=== PATIENT | male | born 1960 | race African-American/Black ===

== ENCOUNTER 2016-04-27 18:14 | Inpatient (IN) | payer OTHER ==
[2016-04-27 20:25] VITALS: BMI 43.0
--- NOTE | 2016-04-27 22:13 | HP ---
CIWA Score - CIWA Score Nausea/Vomitin-No Nausea/No Vomiting Muscle Tremors: None Anxiety: 0-No Anxiety, at Ease Agitation: 0-Normal Activity Paroxysmal Sweats: No Perspiration Orientation: 0-Oriented Tacttile Disturbances: 0-None Auditory Disturbances: 0-None Visual Disturbances: 0-None Headache: 0-None Present CIWA-Ar Total Score: 0 Admission ROS [facility] - HPI Chief Complaint: WITHDRAWAL SX'S Allergies/Adverse Reactions: Allergies Allergy/AdvReac Type Severity Reaction Status Date / Time No Known Drug Allergies Allergy Verified 02/21/14 11:39 History of Present Illness: 55 Y.O MALE WITH OPIOID DEPENDENCE AND SPORADIC USE OF BENZO ( XANAX). STATES DOES NOT CRAVE FOR BENZO. USE 2MG MAYBE ONCE WEEKLY IF ITS AVAILABLE. HERE FOR ADMISSION FOR DETOX TXMENT. CLIENT IS CURRENTLY ON MMTP METHADONE 100 MG PO DAILY. LAST MEDICATED TODAY. ATTEND MMTP HERE. DISCUSSED WITH CLIENT HE DOES NOT MEET DETOX CRITERIA. WILL ADMIT TO REHAB FOR CONTINUAL HEROIN USE WHILE ON MMTP. Exam Limitations: No Limitations - Ebola screening Have you traveled outside of the country in the last 21 days: No Have you had contact with anyone from an Ebola affected area: No Have you been sick,other than usual withdrawal symptoms: No Do you have a fever: No - Review of Systems Constitutional: Chills, Loss of Appetite, Night Sweats EENT: reports: No Symptoms Reported Respiratory: reports: No Symptoms reported Cardiac: reports: Edema (BLE) GI: reports: No Symptoms Reported : reports: No Symptoms Reported Musculoskeletal: reports: No Symptoms Reported Integumentary: reports: No Symptoms Reported Neuro: reports: Seizure Endocrine: reports: No Symptoms Reported Hematology: reports: No Symptoms Reported Psychiatric: reports: Depressed Other Systems: Reviewed and Negative Patient History - Patient Medical History Hx Anemia: No Hx Asthma: No Hx Chronic Obstructive Pulmonary Disease (COPD): No Hx Cancer: No Hx Cardiac Disorders: No Hx Congestive Heart Failure: No Hx Hypertension: Yes (AMLODIPINE) Hx Hypercholesterolemia: Yes (ZOCOR) Hx Pacemaker: No HX Cerebrovascular Accident: No Hx Seizures: No Hx Dementia: No Hx Diabetes: No Hx Gastrointestinal Disorders: No Hx Liver Disease: No Hx Genitourinary Disorders: No Hx Renal Disease (ESRD): No Hx Thyroid Disease: No Hx Human Immunodeficiency Virus (HIV): No Hx Hepatitis C: No Hx Depression: No Hx Suicide Attempt: No Hx Bipolar Disorder: No Hx Schizophrenia: No Other Medical History: H/O TB EXPOSURE WITH TXMENT - Patient Surgical History Past Surgical History: Yes Hx Neurologic Surgery: No Hx Cataract Extraction: No Hx Cardiac Surgery: No Hx Lung Surgery: No Hx Breast Surgery: No Hx Breast Biopsy: No Hx Abdominal Surgery: No Hx Appendectomy: No Hx Cholecystectomy: No Hx Genitourinary Surgery: No Hx Section: No Hx Orthopedic Surgery: No Hx Hysterectomy: No Other Surgical History: INGUINAL HERNIA REPAIR; RIGHT Anesthesia Reaction: Yes - PPD History Previous Implant?: No Documented Results: Positive w/o proof Implanted On Prior R Admission?: No PPD to be Administered?: No - Smoking Cessation Smoking history: Current every day smoker Have you smoked in the past 12 months: Yes Aproximately how many cigarettes per day: 10 Cigars Per Day: 0 Hx Chewing Tobacco Use: No Initiated information on smoking cessation: Yes 'Breaking Loose' booklet given: 04/27/16 - Substance & Tx. History Hx Alcohol Use: Yes Hx Substance Use: Yes Substance Use Type: Heroin, Tranquilizers (XANAX) Hx Substance Use Treatment: Yes ([facility]) - Substances Abused HEROIN Route: Inhalation Frequency: Daily Amount used: 5 BAGS Age of first use: 23 Date of Last Use: 04/26/16 XANAX Route: Oral Frequency: 1-2 times per week (USES ONCE WEEKLY IF THAT. DOES NOT CRAVE) Amount used: 2MG Age of first use: 49 Date of Last Use: 04/26/16 Family Disease History - Family Disease History Family Disease History: Other: Mother (cirrhosis, alcohol), Sister (hiv) Admission Physical Exam S - Vital Signs Vital Signs: Vital Signs - 24 hr 04/27/16 20:23 Temperature 96.8 F L Pulse Rate 55 L Respiratory 16 Rate Blood Pressure 115/61 - Physical General Appearance: Yes: No Apparent Distress, Appropriately Dressed, Other ( MORBID OBESE) HEENTM: Yes: EOMI, Hearing grossly Normal, Normocephalic, Normal Voice, GLENYS, Pharynx Normal, Other (TOP DENTURES BOTTOMS EDENTULOUS) Respiratory: Yes: Chest Non-Tender, Lungs Clear, Normal Breath Sounds, No Respiratory Distress, No Accessory Muscle Use Neck: Yes: No masses,lesions,Nodules, Supple, Trachea in good position Breast: Yes: Breast Exam Deferred Cardiology: Yes: Regular Rhythm, Regular Rate, S1, S2 Abdominal: Yes: Normal Bowel Sounds, Non Tender, Protuberent, Other (GROSSLY OBESE) Genitourinary: Yes: Within Normal Limits Back: Yes: Within Normal Limits Musculoskeletal: Yes: Gait Steady Extremities: Yes: Normal Capillary Refill, Normal Inspection, Normal Range of Motion, Non-Tender Neurological: Yes: air traffic coordinator II-XII NML intact, Fully Oriented, Alert, Motor Strength 5/5, Normal Mood/Affect Integumentary: Yes: Normal Color, Dry, Warm, Other (DRY SCALY SKIN TO BLE WITH HYPERPIMENTATION/VASC CHANGES) Lymphatic: Yes: Within Normal Limits - Diagnostic (1) High cholesterol Current Visit: Yes Status: Chronic (2) HTN (hypertension) Current Visit: Yes Status: Chronic Qualifiers: Hypertension type: essential hypertension Qualified Code(s): I10 - Essential (primary) hypertension Comment: stable on meds, sees primary (3) Lymphedema of both lower extremities Current Visit: Yes Status: Chronic Comment: pedal exercises (4) Methadone maintenance therapy patient Current Visit: Yes Status: Chronic Comment: stable, counselor Efren (5) Nicotine dependence Current Visit: Yes Status: Chronic Qualifiers: Nicotine product type: cigarettes Substance use status: uncomplicated Qualified Code(s): F17.210 - Nicotine dependence, cigarettes, uncomplicated Comment: counseled cessation - uses nicotrol Cleared for Admission [facility] - Detox or Rehab Claeared for Rehab Admission: Yes [facility] Breath Alcohol Content Breath Alcohol Content: 0 Urine Drug Screen - Results Drug Screen Negative: No Urine Drug Screen Results: JULIA-Cocaine, OPI-Opiates, BZO-Benzodiazepines, MTD- Methadone
[2016-04-27] MEDS ORDERED: hydrOXYzine PAMOATE 50 MG CAPSULE (FP) PO PRN (22:35)
[2016-04-27] MEDS ORDERED: MAGNESIUM CITRATE 300 ML BOTTLE PO PRN (22:35)
[2016-04-27] MEDS ORDERED: diphenhydrAMINE HCL 50 MG CAPSULE PO PRN (22:35)
[2016-04-27] MEDS ORDERED: P-EPHED 60MG/TRIPROLIDI 2.5MG TABLET PO PRN (22:35)
[2016-04-27] MEDS ORDERED: LOPERAMIDE HCL 2 MG CAPSULE PO PRN (22:35)
[2016-04-27] MEDS ORDERED: NICOTINE POLACRILEX 2 MG GUM BC PRN (22:35)
[2016-04-27] MEDS ORDERED: IBUPROFEN 400 MG TABLET (FP) PO PRN (22:35)
[2016-04-27] MEDS ORDERED: MAG HYDROX/AL HYDROX/SIMETH 30 ML UNIT-DOSE CUP PO PRN (22:35)
[2016-04-27] MEDS ORDERED: MENTHOL/PHENOL 1 EACH UD MM PRN (22:35)
[2016-04-27] MEDS ORDERED: MAGNESIUM HYDROX 2400MG/30ML ORAL SUSPENSION 30 ML CUP PO PRN (22:35)
[2016-04-27] MEDS ORDERED: guaiFENesin/D-METHORPHAN HB 10 ML UNIT-DOSE CUPS PO PRN (22:35)
[2016-04-27] MEDS ORDERED: ACETAMINOPHEN 325 MG TABLET (FP) PO PRN (22:35)
[2016-04-28] MEDS ORDERED: METHADONE HCL 40 MG DISPERSABLE TABLET PO SCH (07:30)
[2016-04-28] MEDS ORDERED: METHADONE HCL 10 MG TABLET ONE (07:40)
[2016-04-28] MEDS ORDERED: METHADONE HCL 40 MG DISPERSABLE TABLET ONE (07:40)
[2016-04-28] MEDS: METHADONE 80 MG, METHADONE 20 MG PO SCH (07:45)
--- NOTE | 2016-04-28 09:35 | HP ---
Psychiatrist Admission - Data Date of interview: 04/28/16 Admission source: [facility] Identifying data: This is the first [facility] admission for this 55 years old single male, father of 2 son, domiciled living with his girlfriend Medical History: Significant for history of HTN, Hyperlipidemia, prophylatic treatment for TB and S/P right Inguinal Hernia repair. He attends [facility] on 100 mg of methadone daily Psychiatric History: Reports that his first psychiatric contact was in early 2012. he saw a psychiatrist who diagnosed him with depression and prescribed him medication which he took for 2 years. He does not recall name of that medication. Later in 2012, he was evaluated by [facility] psychiatrist and was given SSI.Eight months ago, he saw Dr Pisano at [facility] and was prescibed Zoloft for depression. Told commercial lines underwriter that he stopped taking it for a while now since he has been feeling better. Reports that his depression stemmed from a series of in his family. Told commercial lines underwriter his father when he was 2, his mother when he was 7, 2 sisters respectively when he was 24 and 2003., a son shoot himself in 2005 and his second son was shot and killed in 2009. Denies history of previouspsychiatric hospitalization or suicidal atttempt. At prrsent, reports feeling midly depressed Physical/Sexual Abuse/Trauma History: Denies history of physical, sexual abuse as well as DV relationship Additional Comment: Reports history of 6 previous arrests including one felony conviction. Denies being on probation/parole at present Vital Signs: Vital Signs - 24 hr 04/27/16 04/28/16 04/28/16 20:23 00:30 03:30 Temperature 96.8 F L Pulse Rate 55 L Respiratory 16 16 16 Rate Blood Pressure 115/61 04/28/16 06:00 Temperature 98.1 F Pulse Rate 49 L Respiratory 18 Rate Blood Pressure 107/65 Allergies/Adverse Reactions: Allergies Allergy/AdvReac Type Severity Reaction Status Date / Time No Known Drug Allergies Allergy Verified 02/21/14 11:39 Date of last physical exam: 04/27/16 Concur with the findings of this exam: Yes - Substance Abuse/Tx History Hx Alcohol Use: No Hx Substance Use: Yes Substance Use Type: Heroin (Started using heroin at age 23, consumes 5 bags daily in addition of MMTP 100 mg daily. Last used on 04/26/16) Hx Substance Use Treatment: Yes (one previous inpt detox @ [facility] Mar 2010) - Admission Criteria Previous failed treatment: Yes Poor recovery environment: Yes Comorbidities: Yes Lacks judgement: Yes Mental Status Exam - Mental Status Exam Alert and Oriented to: Time, Place, Person Cognitive Function: Fair Patient Appearance: Well Groomed Mood: Anxious (mildly) Affect: Appropriate Patient Behavior: Cooperative Speech Pattern: Artificially Ventilated Voice Loudness: Limited Variation Thought Disorder: Not Present Hallucinations: Denies Suicidal Ideation: Denies Homicidal Ideation: Denies Insight/Judgement: Fair Sleep: Fair Appetite: Good Muscle strength/Tone: Normal Gait/Station: Normal Psychiatric Findings - Problem List ([place] 1, 2,3) (1) Opioid dependence Current Visit: Yes Status: Acute (2) Sedative abuse Current Visit: Yes Status: Acute (3) Opioid dependence on agonist therapy Current Visit: Yes Status: Acute (4) Nicotine dependence Current Visit: Yes Status: Chronic Qualifiers: Nicotine product type: cigarettes Substance use status: uncomplicated Qualified Code(s): F17.210 - Nicotine dependence, cigarettes, uncomplicated Comment: counseled cessation - uses nicotrol (5) Depressive disorder Current Visit: Yes Status: Ruled-out (6) Substance induced mood disorder Current Visit: Yes Status: Acute (7) HTN (hypertension) Current Visit: Yes Status: Chronic Qualifiers: Hypertension type: essential hypertension Qualified Code(s): I10 - Essential (primary) hypertension Comment: stable on meds, sees primary (8) High cholesterol Current Visit: Yes Status: Chronic (9) Lymphedema of both lower extremities Current Visit: Yes Status: Chronic Comment: pedal exercises (10) Obesity, Class III, BMI 40-49.9 (morbid obesity) Current Visit: No Status: Chronic Comment: thinking of lap band surgery anti-inflammatory diet teaching done (11) PPD positive, treated Current Visit: No Status: Chronic (12) Plantar fasciitis Current Visit: No Status: Chronic Comment: reviewed stretches - return demonstration ice topicals (13) Sleep apnea Current Visit: No Status: Chronic Comment: now has cpap and using it (14) Vitamin D deficiency Current Visit: No Status: Chronic Comment: cont [id number] biw - Initial Treatment Plan Initial Treatment Plan: Monitor progress
[2016-04-28] MEDS: amLODIPine BESYLATE 10 MG TABLET (FP) PO SCH (10:00)
[2016-04-28] MEDS: NICOTINE 14 MG/24 HOURS TOPICAL PATCH TD SCH (10:00)
[2016-04-28] MEDS: FUROSEMIDE 40 MG TABLET (FP) PO SCH (10:00)
[2016-04-28] MEDS: PRENATAL VITAMINS W/ FOLIC ACID TABLET (FP) PO SCH (10:00)
[2016-04-28 10:19] LABS: MCH 27.8 pg (25.7-33.7); MCHC 33.4 g/dl (32.0-35.9); MEAN CELL VOLUME 83.2 fl (80-96); MEAN PLT VOLUME 8.3 fl (7.5-11.1); PLATELET COUNT 240 K/MM3 (134-434); RDW 15.1 % (11.9-15.9); WHITE BLOOD COUNT 8.2 K/mm3 (4.0-10.0)
[2016-04-28 10:47] LABS: ALBUMIN 3.6 g/dl (3.4-5.0); ALK PHOS 57 U/L (45-117); ANION GAP 7 (8-16); BILIRUBIN,TOTAL 0.7 mg/dL (0.2-1.0); CALCIUM 8.7 mg/dL (8.5-10.1); CO2 28 mmol/L (21-32); CREATININE 1.2 mg/dL (0.7-1.3); GLUCOSE,RANDOM 75 mg/dL (74-106); SGOT/AST 16 U/L (15-37); SGPT/ALT 21 U/L (12-78); TOT PROT 6.4 g/dl (6.4-8.2)
[2016-04-28 11:45] LABS: HIV 1 & 2 AB NEGATIVE; HIV 1 AGp24 NEGATIVE
[2016-04-28 17:20] LABS: URINE APPEARANCE SLCLOUDY; URINE BILIRUBIN NEGATIVE (NEGATIVE); URINE BLOOD NEGATIVE (NEGATIVE); URINE COLOR YELLOW; URINE GLUCOSE (UA) NEGATIVE (NEGATIVE); URINE KETONE NEGATIVE (NEGATIVE); URINE NITRITE NEGATIVE (NEGATIVE); URINE PROTEIN NEGATIVE (NEGATIVE); URINE UROBILINOGEN 2.0 E.U/dl E.U./dl (0.2-1.0)
[2016-04-28 17:26] LABS: URINE LEUK ESTERASE 2+ (NEGATIVE)
[2016-04-28 17:39] LABS: URINE BACTERIA FEW /hpf (NONE SEEN); URINE MUCUS MANY; URINE RBC 8 /hpf (0-3); URINE WBC 84 /hpf (3-5)
[2016-04-28] MEDS: ATORVASTATIN CA 10 MG TABLET (FP) PO SCH (21:56)
[2016-04-28] MEDS: THIAMINE HCL 100 MG TABLET (FP) PO SCH (21:56)
[2016-04-29] MEDS ORDERED: METHADONE HCL 10 MG TABLET ONE (04:04)
[2016-04-29] MEDS ORDERED: METHADONE HCL 40 MG DISPERSABLE TABLET ONE (04:05)
[2016-04-29] MEDS: METHADONE 80 MG, METHADONE 20 MG PO SCH (06:20)
[2016-04-29] MEDS: FUROSEMIDE 40 MG TABLET (FP) PO SCH (09:55)
[2016-04-29] MEDS: amLODIPine BESYLATE 10 MG TABLET (FP) PO SCH (09:55)
[2016-04-29] MEDS: PRENATAL VITAMINS W/ FOLIC ACID TABLET (FP) PO SCH (09:55)
[2016-04-29] MEDS: NICOTINE 14 MG/24 HOURS TOPICAL PATCH TD SCH (09:56)
[2016-04-29] MEDS: THIAMINE HCL 100 MG TABLET (FP) PO SCH (21:23)
[2016-04-29] MEDS: ATORVASTATIN CA 10 MG TABLET (FP) PO SCH (21:23)
[2016-04-30] MEDS ORDERED: METHADONE HCL 10 MG TABLET ONE (03:35)
[2016-04-30] MEDS ORDERED: METHADONE HCL 40 MG DISPERSABLE TABLET ONE (03:35)
[2016-04-30] MEDS: METHADONE 80 MG, METHADONE 20 MG PO SCH (06:12)
[2016-04-30] MEDS: amLODIPine BESYLATE 10 MG TABLET (FP) PO SCH (10:37)
[2016-04-30] MEDS: PRENATAL VITAMINS W/ FOLIC ACID TABLET (FP) PO SCH (10:37)
[2016-04-30] MEDS: NICOTINE 14 MG/24 HOURS TOPICAL PATCH TD SCH (10:37)
[2016-04-30] MEDS: FUROSEMIDE 40 MG TABLET (FP) PO SCH (10:37)
[2016-04-30] MEDS: THIAMINE HCL 100 MG TABLET (FP) PO SCH (21:43)
[2016-04-30] MEDS: ATORVASTATIN CA 10 MG TABLET (FP) PO SCH (21:43)
[2016-05-01] MEDS ORDERED: METHADONE HCL 10 MG TABLET ONE (03:48)
[2016-05-01] MEDS ORDERED: METHADONE HCL 40 MG DISPERSABLE TABLET ONE (03:49)
[2016-05-01] MEDS: METHADONE 80 MG, METHADONE 20 MG PO SCH (06:06)
[2016-05-01 06:34] VITALS: TEMP 98.7
[2016-05-01] MEDS: PRENATAL VITAMINS W/ FOLIC ACID TABLET (FP) PO SCH (10:28)
[2016-05-01] MEDS: FUROSEMIDE 40 MG TABLET (FP) PO SCH (10:29)
[2016-05-01] MEDS: amLODIPine BESYLATE 10 MG TABLET (FP) PO SCH (10:29)
[2016-05-01] MEDS: NICOTINE 14 MG/24 HOURS TOPICAL PATCH TD SCH (10:30)
[2016-05-01 11:55] VITALS: BP 117/65; PULSE 44
--- NOTE | 2016-05-01 15:49 | PN ---
[facility] Progress Note Note: PATIENT DID NOT WANT TO COMPLETE TREATMENT,SIGNED RELEASE AMA,PSYCHIATRIST SKI PATROLLER NOTIFIED BY NURSE
--- NOTE | 2016-05-04 10:17 | EKG ---
Test Reason : Blood Pressure : / mmHG Vent. Rate : 046 BPM Atrial Rate : 046 BPM P-R Int : 172 ms QRS Dur : 086 ms QT Int : 426 ms P-R-T Axes : 060 006 -15 degrees QTc Int : 372 ms SINUS BRADYCARDIA NONSPECIFIC T WAVE ABNORMALITY ABNORMAL ECG WHEN COMPARED WITH ECG OF 21-FEB-2014 14:05, NO SIGNIFICANT CHANGE WAS FOUND Confirmed by ROLY VACA MD ([id number]) on 05/04/2016 10:17:26 AM Referred By: Confirmed By:ROLY VACA MD
== END 2016-05-01 14:50 | disposition left against medical advice (07) | DRG 770 ==
LOC: YASAS 18:14 → Y3W 22:34
PROVIDERS: ADMIT Internal Medicine; ATTEND Internal Medicine
PROC: HZ2ZZZZ Detoxification Services for Substance Abuse Treatment (ICD-10-PCS; principal; 2016-04-27)
DX: F11.23 Opioid dependence with withdrawal (principal); F13.10 Sedative, hypnotic or anxiolytic abuse, uncomplicated; F17.210 Nicotine dependence, cigarettes, uncomplicated; F32.9 Major depressive disorder, single episode, unspecified; I10 Essential (primary) hypertension; E78.5 Hyperlipidemia, unspecified; E66.9 Obesity, unspecified; Z68.41 Body mass index [BMI] 40.0-44.9, adult; M72.2 Plantar fascial fibromatosis; G47.30 Sleep apnea, unspecified; E55.9 Vitamin D deficiency, unspecified; R59.1 Generalized enlarged lymph nodes; Z86.11 Personal history of tuberculosis
CPT/HCPCS: 36415; 71020-TC; 80053; 81003; 81015; 85027; 86593; 87389; 93005; 93010

== ENCOUNTER 2021-07-12 16:13 | Emergency (ER) | payer OTHER ==
[2021-07-12 16:29] VITALS: BP 149/71; TEMP 98.2; BMI 40.7
[2021-07-12] MEDS ORDERED: ASPIRIN 81 MG CHEWABLE TABLETS PO ONE (17:34)
[2021-07-12 18:31] LABS: EPI CELLS >36 /uL (0-25.1); HYALINE CASTS 16 /uL (0-3.1); PH,URINE 5.5 (5.0-8.0); URINE APPEARANCE CLEAR; URINE BACTERIA 138 /uL (0-1359); URINE BILIRUBIN NEGATIVE (NEGATIVE); URINE COLOR YELLOW; URINE GLUCOSE (UA) NEGATIVE (NEGATIVE); URINE KETONE TRACE (NEGATIVE); URINE LEUK ESTERASE TRACE (NEGATIVE); URINE NITRITE NEGATIVE (NEGATIVE); URINE PROTEIN 2+ (NEGATIVE); URINE RBC 31 /uL (0-23.9); URINE WBC 61 /uL (0-25.8)
[2021-07-12 18:55] LABS: BASO % 0.4 % (0-2.0); EOS % 1.2 % (0-4.5); HEMATOCRIT 38.5 % (35.4-49); HEMOGLOBIN 12.7 GM/dL (11.7-16.9); LYMPH % 21.9 % (8-40); MCH 27.5 pg (25.7-33.7); MCHC 33.1 g/dl (32.0-35.9); MEAN PLT VOLUME 8.5 fl (7.5-11.1); MONO % 5.9 % (3.8-10.2); NEUT % 70.6 % (42.8-82.8); PLATELET COUNT 283 10^3/uL (134-434); RBC 4.64 M/mm3 (4.00-5.60); RDW 15.3 % (11.9-15.9)
[2021-07-12 19:00] LABS: INR 1.11 (0.83-1.09); PROTHROMBIN TIME (PATIENT) 12.8 SEC (9.7-13.0)
[2021-07-12 19:03] LABS: ACTIVATED PTT 34.4 SECONDS (25.2-36.5)
[2021-07-12 19:21] LABS: ALBUMIN 4.6 g/dl (3.4-5.0); BLOOD UREA NITROGEN 17.1 mg/dL (7-18); CALCIUM 10.3 mg/dL (8.5-10.1); MAGNESIUM 2.3 mg/dL (1.8-2.4)
[2021-07-12 19:24] LABS: CREATININE 1.3 mg/dL (0.55-1.3)
[2021-07-12 19:26] LABS: TOT PROT 7.7 g/dl (6.4-8.2)
[2021-07-12 19:30] LABS: N-TERMINAL BNP 21.9 pg/ml (5-125)
[2021-07-12 21:14] VITALS: PULSE 81
[2021-07-13 14:08] LABS: SARS-CoV-2 NAA Not Detected (Not Detected)
== END 2021-07-12 21:16 | disposition home or self-care (01) ==
LOC: JER 16:13
DX: B34.9 Viral infection, unspecified (principal)
CPT/HCPCS: 36415; 71046-TC-FY; 80053; 81003; 83735; 83880; 84484; 85025; 85610; 85730; 93005; 93010; 99285-25; C9803-CS; U0003; U0005

== ENCOUNTER 2022-09-05 04:01 | Day surgery (SDC) | payer OTHER ==
[2022-09-01 09:56] VITALS: BMI 39.4
[2022-09-05 08:05] VITALS: RESP 20
[2022-09-05] MEDS ORDERED: PROMETHAZINE HCL 25 MG/1 ML VIAL IVPB PRN (08:36)
[2022-09-05] MEDS ORDERED: oxyCODONE HCL 5 MG TABLET PO PRN (08:36)
[2022-09-05] MEDS ORDERED: ONDANSETRON 4 MG/2 ML VIAL IVPUSH PRN (08:36)
[2022-09-05] MEDS ORDERED: LACTATED RINGERS SOLUTION 1,000 ML IV SCH (08:45)
[2022-09-05] MEDS ORDERED: DEXAMETHASONE SOD PHOSPHATE 4 MG/1 ML VIAL ONE (08:56)
[2022-09-05] MEDS ORDERED: LIDOCAINE HCL 2% (20ML MULTI-DOSE VIAL) ONE (08:56)
[2022-09-05] MEDS ORDERED: BUPIVACAINE HCL/PF 0.5% (5MG/ML) 10 ML VIAL ONE (08:56)
[2022-09-05] MEDS ORDERED: MIDAZOLAM HCL 2 MG/2 ML SINGLE DOSE VIAL ONE (09:07)
[2022-09-05] MEDS ORDERED: PROPOFOL 20 ML ONE (09:07)
[2022-09-05] MEDS ORDERED: ceFAZolin SODIUM 1 GM VIAL ONE (09:08)
[2022-09-05] MEDS ORDERED: SODIUM CHLORIDE 0.9% P/F 10 ML VIAL IJ ONE ×2 (09:08)
[2022-09-05] MEDS ORDERED: LIDOCAINE HCL/PF 2% SDV 5ML VIAL ONE (09:08)
[2022-09-05] MEDS ORDERED: GLYCOPYRROLATE 0.2 MG/1 ML VIAL ONE (09:08)
[2022-09-05] MEDS ORDERED: PROPOFOL 40 ML ONE (09:10)
[2022-09-05] MEDS ORDERED: ceFAZolin SODIUM 1 GM VIAL IVPB ONE (09:22)
[2022-09-05] MEDS ORDERED: BUPIVACAINE HCL/PF 0.5% (5MG/ML) 10 ML VIAL IJ ONE (09:23)
[2022-09-05] MEDS ORDERED: LIDOCAINE HCL 2% (50ML VIAL) INF ONE (09:23)
[2022-09-05] MEDS ORDERED: KETOROLAC TROMETHAMINE 30 MG/1 ML VIAL ONE (09:50)
[2022-09-05] MEDS ORDERED: DEXAMETHASONE SOD PHOSPHATE 4 MG/1 ML VIAL IVPUSH ONE (10:03)
[2022-09-05 14:40] VITALS: BP 142/77; PULSE 65; TEMP 97.5
== END 2022-09-05 14:45 | disposition home or self-care (01) ==
LOC: JASU-SURG 04:01
PROVIDERS: ATTEND Podiatrist
PROC: 0QBQ0ZZ Excision of Right Toe Phalanx, Open Approach (ICD-10-PCS; 2022-09-05)
PROC: 0SRP0JZ Replacement of Right Toe Phalangeal Joint with Synthetic Substitute, Open Approach (ICD-10-PCS; principal; 2022-09-05 09:30)
DX: M20.41 Other hammer toe(s) (acquired), right foot (principal)
CPT/HCPCS: 73630-TC-RT-FY; 88305-TC; 88311-TC

== ENCOUNTER 2023-04-28 11:40 | Inpatient (IN) | payer OTHER ==
[2023-04-28 12:24] VITALS: BMI 40.7
[2023-04-28] MEDS ORDERED: LOPERAMIDE HCL 2 MG CAPSULE PO PRN (13:19)
[2023-04-28] MEDS ORDERED: MAG HYDROX/AL HYDROX/SIMETH 30 ML UNIT-DOSE CUP PO PRN (13:19)
[2023-04-28] MEDS ORDERED: BISMUTH SUBSALICYLATE 524 MG/30 ML PO PRN (13:19)
[2023-04-28] MEDS ORDERED: POLYETHYLENE GLYCOL (HEALTHYLAX) 3350 17 GM PACKET PO PRN (13:19)
[2023-04-28] MEDS ORDERED: MAGNESIUM HYDROX 2400MG/30ML ORAL SUSPENSION 30 ML CUP PO PRN (13:19)
[2023-04-28] MEDS ORDERED: NALOXONE HCL 0.4 MG/ML VIAL IM PRN (13:19)
[2023-04-28] MEDS ORDERED: IBUPROFEN 400 MG TABLET (FP) PO PRN (13:19)
[2023-04-28] MEDS ORDERED: guaiFENesin 600 MG TABLET.ER (FP) PO PRN (13:19)
[2023-04-28] MEDS ORDERED: BENZONATATE 200 MG CAPSULE PO PRN (13:19)
[2023-04-28] MEDS ORDERED: ACETAMINOPHEN 325 MG TABLET (FP) PO PRN (13:19)
[2023-04-28] MEDS ORDERED: ONDANSETRON *ODT* 4 MG TABLET SL PRN (13:19)
[2023-04-28] MEDS ORDERED: DICYCLOMINE HCL 10 MG CAPSULE PO PRN (13:19)
[2023-04-28] MEDS ORDERED: NALOXONE HCL (KLOXXADO) 8 MG SPRAY NS PRN (13:19)
[2023-04-28] MEDS ORDERED: P-EPHED 60MG/TRIPROLIDI 2.5MG TABLET PO PRN (13:19)
[2023-04-28] MEDS ORDERED: BENZOCAINE/MENTHOL (CHLORASEPTIC ) LOZENGE MM PRN (13:19)
[2023-04-28] MEDS: NICOTINE 7 MG/24 HOURS TOPICAL PATCH TD SCH (18:05)
[2023-04-28] MEDS: ATORVASTATIN CA 10 MG TABLET (FP) PO SCH (22:26)
[2023-04-28] MEDS: THIAMINE HCL 100 MG TABLET (FP) PO SCH (22:26)
[2023-04-28] MEDS: TAMSULOSIN HCL 0.4 MG CAP PO SCH (22:26)
[2023-04-28] MEDS: MELATONIN 5 MG TABLETS PO SCH (22:27)
[2023-04-29 09:44] LABS: POTASSIUM 3.7 mmol/L (3.5-5.1)
[2023-04-29 09:46] LABS: HEMATOCRIT 35.5 % (35.4-49); HEMOGLOBIN 11.5 GM/dL (11.7-16.9); MCHC 32.6 g/dl (32.0-35.9); MEAN PLT VOLUME 8.7 fl (7.5-11.1); PLATELET COUNT 213 10^3/uL (134-434); RBC 4.27 M/mm3 (4.00-5.60); RDW 16.2 % (11.9-15.9); WHITE BLOOD COUNT 8.3 K/mm3 (4.0-10.0)
[2023-04-29 10:06] LABS: CALCIUM 8.6 mg/dL (8.5-10.1)
[2023-04-29 10:07] LABS: ALBUMIN 3.2 g/dl (3.4-5.0)
[2023-04-29 10:11] LABS: TOT PROT 6.1 g/dl (6.4-8.2)
[2023-04-29 10:12] LABS: BILIRUBIN,TOTAL 0.3 mg/dL (0.2-1)
[2023-04-29] MEDS: NICOTINE 7 MG/24 HOURS TOPICAL PATCH TD SCH (10:43)
[2023-04-29] MEDS: PRENATAL VITAMINS W/ FOLIC ACID TABLET (FP) PO SCH (10:49)
[2023-04-29] MEDS ORDERED: FLU VACCINE (FLULAVAL) PF 60 MCG/0.5 ML SYRINGE 2023-2024 IM ONE (12:00)
[2023-04-29] MEDS ORDERED: PNEUMOC 20-VAL CONJ-DIP CRM/PF 0.5 ML SYRINGE IM ONE (12:00)
[2023-04-29] MEDS ORDERED: methaDONE HCL 10 MG TABLET PO SCH (12:30)
[2023-04-29] MEDS: ATORVASTATIN CA 10 MG TABLET (FP) PO SCH (22:47)
[2023-04-29] MEDS: TAMSULOSIN HCL 0.4 MG CAP PO SCH (22:47)
[2023-04-29] MEDS: MELATONIN 5 MG TABLETS PO SCH (22:47)
[2023-04-29] MEDS: THIAMINE HCL 100 MG TABLET (FP) PO SCH (22:47)
[2023-04-30] MEDS: PRENATAL VITAMINS W/ FOLIC ACID TABLET (FP) PO SCH (10:47)
[2023-04-30] MEDS: NICOTINE 7 MG/24 HOURS TOPICAL PATCH TD SCH (10:47)
[2023-04-30] MEDS ORDERED: diazePAM 5 MG TABLET PO PRN (13:06)
[2023-04-30] MEDS: diazePAM 5 MG TABLET PO SCH ×2 (17:52→22:06)
[2023-04-30] MEDS: ATORVASTATIN CA 10 MG TABLET (FP) PO SCH (21:56)
[2023-04-30] MEDS: TAMSULOSIN HCL 0.4 MG CAP PO SCH (21:56)
[2023-04-30] MEDS: MELATONIN 5 MG TABLETS PO SCH (21:56)
[2023-04-30] MEDS: THIAMINE HCL 100 MG TABLET (FP) PO SCH (21:56)
[2023-05-01] MEDS: diazePAM 5 MG TABLET PO SCH ×3 (06:34→22:17)
[2023-05-01] MEDS: PRENATAL VITAMINS W/ FOLIC ACID TABLET (FP) PO SCH (09:34)
[2023-05-01] MEDS: FUROSEMIDE 20 MG TABLET (FP) PO SCH (09:34)
[2023-05-01] MEDS: NICOTINE 7 MG/24 HOURS TOPICAL PATCH TD SCH (09:34)
[2023-05-01] MEDS ORDERED: amLODIPine BESYLATE 10 MG TABLET (FP) PO SCH (10:00)
[2023-05-01] MEDS ORDERED: amLODIPine BESYLATE 5 MG TABLET (FP) PO SCH (10:00)
[2023-05-01] MEDS: IBUPROFEN 600 MG TABLET (FP) PO PRN ×2 (14:24→23:03)
[2023-05-01] MEDS: ATORVASTATIN CA 10 MG TABLET (FP) PO SCH (22:17)
[2023-05-01] MEDS: MELATONIN 5 MG TABLETS PO SCH (22:17)
[2023-05-01] MEDS: TAMSULOSIN HCL 0.4 MG CAP PO SCH (22:17)
[2023-05-01] MEDS: THIAMINE HCL 100 MG TABLET (FP) PO SCH (22:18)
[2023-05-02] MEDS: diazePAM 5 MG TABLET PO SCH ×2 (06:14→17:52)
[2023-05-02] MEDS: PRENATAL VITAMINS W/ FOLIC ACID TABLET (FP) PO SCH (10:34)
[2023-05-02] MEDS: FUROSEMIDE 20 MG TABLET (FP) PO SCH (10:34)
[2023-05-02] MEDS: amLODIPine BESYLATE 10 MG TABLET (FP) PO SCH (10:34)
[2023-05-02] MEDS: NICOTINE 7 MG/24 HOURS TOPICAL PATCH TD SCH (10:47)
[2023-05-02] MEDS: THIAMINE HCL 100 MG TABLET (FP) PO SCH (21:54)
[2023-05-02] MEDS: ATORVASTATIN CA 10 MG TABLET (FP) PO SCH (21:54)
[2023-05-02] MEDS: MELATONIN 5 MG TABLETS PO SCH (21:54)
[2023-05-02] MEDS: TAMSULOSIN HCL 0.4 MG CAP PO SCH (21:54)
[2023-05-02] MEDS: IBUPROFEN 600 MG TABLET (FP) PO PRN (21:55)
[2023-05-03] MEDS ORDERED: diazePAM 5 MG TABLET PO ONE (06:00)
[2023-05-03] MEDS: NICOTINE 7 MG/24 HOURS TOPICAL PATCH TD SCH (10:38)
[2023-05-03] MEDS: PRENATAL VITAMINS W/ FOLIC ACID TABLET (FP) PO SCH (10:38)
[2023-05-03] MEDS: amLODIPine BESYLATE 10 MG TABLET (FP) PO SCH (10:38)
[2023-05-03] MEDS: FUROSEMIDE 20 MG TABLET (FP) PO SCH (10:38)
[2023-05-03] MEDS ORDERED: FUROSEMIDE 20 MG TABLET (FP) PO ONE (14:12)
[2023-05-03] MEDS: IBUPROFEN 600 MG TABLET (FP) PO PRN (15:12)
[2023-05-03] MEDS: ATORVASTATIN CA 10 MG TABLET (FP) PO SCH (22:30)
[2023-05-03] MEDS: THIAMINE HCL 100 MG TABLET (FP) PO SCH (22:30)
[2023-05-03] MEDS: TAMSULOSIN HCL 0.4 MG CAP PO SCH (22:30)
[2023-05-03] MEDS: MELATONIN 5 MG TABLETS PO SCH (22:30)
[2023-05-04 09:06] VITALS: BP 156/94; PULSE 103; RESP 20; TEMP 98
[2023-05-04] MEDS: IBUPROFEN 600 MG TABLET (FP) PO PRN (09:24)
[2023-05-04] MEDS: PRENATAL VITAMINS W/ FOLIC ACID TABLET (FP) PO SCH (09:24)
[2023-05-04] MEDS: amLODIPine BESYLATE 10 MG TABLET (FP) PO SCH (09:24)
[2023-05-04] MEDS: FUROSEMIDE 20 MG TABLET (FP) PO SCH (09:24)
[2023-05-04] MEDS: NICOTINE 7 MG/24 HOURS TOPICAL PATCH TD SCH (09:28)
[2023-05-04] MEDS ORDERED: FUROSEMIDE 20 MG TABLET (FP) PO ONE (11:55)
== END 2023-05-04 12:08 | disposition home or self-care (01) | DRG 772 ==
LOC: YASAS 11:40 → Y6N 14:28
PROVIDERS: ADMIT Allergy & Immunology; ATTEND Surgery
PROC: HZ42ZZZ Group Counseling for Substance Abuse Treatment, Cognitive-Behavioral (ICD-10-PCS; principal; 2023-04-28)
DX: F13.230 Sedative, hypnotic or anxiolytic dependence with withdrawal, uncomplicated (principal); F11.20 Opioid dependence, uncomplicated; F17.210 Nicotine dependence, cigarettes, uncomplicated; I11.0 Hypertensive heart disease with heart failure; I50.9 Heart failure, unspecified; E87.5 Hyperkalemia; E78.5 Hyperlipidemia, unspecified; N40.0 Benign prostatic hyperplasia without lower urinary tract symptoms; E66.01 Morbid (severe) obesity due to excess calories; Z68.41 Body mass index [BMI] 40.0-44.9, adult; Z20.822 Contact with and (suspected) exposure to COVID-19; Z86.11 Personal history of tuberculosis
CPT/HCPCS: 36415; 80053; 85027; 86780; 87635; 87811; 90677; 90686; 93005; 93010; G0008